=== PATIENT | male | born 1980 | race Caucasian/White ===

== ENCOUNTER 2018-03-30 16:11 | Emergency (ER) | payer OTHER, MEDICAID ==
[2018-03-30 16:25] VITALS: BP 131/82
--- NOTE | 2018-03-30 17:12 | EDPHY ---
H & P Time Seen by Provider: 03/30/18 16:18 HPI/ROS: CHIEF COMPLAINT: Rash HISTORY OF PRESENT ILLNESS: Per caregiver patient with history of rash. She states that it was initially noted 2 months ago and was seen by patient's primary care physician. Rash is described as both itchy and painful. It is diffuse over the upper extremities and back but over the last few days has become much more severe in the lower abdomen and groin area. Patient also recently admitted to [facility] with diagnosis of flu and hypoxia. No report of fever. Per caregiver there has been scabies in the longterm. Contents of 10 point review of systems otherwise negative except for what is mentioned in HPI. General Appearance: Alert, mild distress, developmental delay. Eyes: Pupils equal and round no pallor or injection. ENT, Mouth: Mucous membranes moist. Poor dentition. Respiratory: There are no retractions, lungs are clear to auscultation. Cardiovascular: Regular rate and rhythm. Gastrointestinal: Abdomen is soft and nontender, no masses, bowel sounds normal. Neurological: No focal neurologic deficits, at baseline. Skin: Warm and dry, multiple skin changes including diffuse erythematous small papules in the upper extremities. Low back bilaterally with erythematous area with evidence of scratching. Groin area difficult to exam given patient's developmental delay but there is diffuse erythematous macules and papules with satellite lesions consistent with tinea cruris. No inter digital lesions consistent with scabies. Musculoskeletal: Neck is supple nontender. Extremities are symmetrical, full range of motion, no edema. Psychiatric: Some agitation with exam. Medical/surgical history: Developmental delay, bipolar, OCD. Social history: Lives in longterm. Smoking Status: Never smoked Constitutional: Initial Vital Signs Temperature (C) 36.4 C 03/30/18 16:19 Heart Rate 88 03/30/18 16:19 Respiratory Rate 18 03/30/18 16:19 Blood Pressure 131/82 H 03/30/18 16:19 O2 Sat (%) 95 03/30/18 16:19 O2 Delivery Mode Room Air Allergies/Adverse Reactions: No Known Allergies Allergy (Verified 03/30/18 16:18) Home Medications: Medication Instructions Recorded Divalproex [Depakote 250 MG (RX)] 250 mg 06/26/11 LORazepam [Ativan (*)] 2 06/26/11 QUETIAPINE FUMARATE [Seroquel] 200 mg PO 06/26/11 Desoximetasone 0.25% [Topicort 1 praveen TP BID #1 tube 12/13/12 0.25% Cream (RX)] Hydrocodone/APAP 5325 [[place] 1 tab PO Q4 #10 tab 12/21/13 5/325 (*)] Butenafine HCl [Lotrimin Ultra] 1 praveen TP DAILY 10 Days #1 cream.gm. 03/30/18 Medical Decision Making Differential Diagnosis: Differential diagnosis includes but is not limited to cellulitis, scabies, and tinea cruris, other dermatitis. After evaluation very lower no suspicion for scabies as no evidence of typical lesions and groin rash much more consistent with tinea. Prescription written for Lotrimin cream. Recommended using no other topicals to this area until response noted. Strongly recommended follow- up with primary care physician in approximately 1 week to assess treatment plan. No signs of cellulitis, allergic reaction or other bacterial infection. Stable for discharge. Departure - Departure Disposition: Home, Routine, Self-Care Clinical Impression: Tinea cruris Condition: Good Instructions: Art Itch (ED) Additional Instructions: Try cream as prescribed. If not improving after 5-7 days follow-up with her primary care physician. Referrals: Unknown,Unknown [Primary Care Provider] - As per Instructions Prescriptions: Butenafine HCl [Lotrimin Ultra] 1 praveen TP DAILY 10 Days #1 cream.gm.
== END 2018-03-30 17:12 | disposition home or self-care (01) ==
LOC: CED 16:11
DX: B35.6 Tinea cruris (principal)
CPT/HCPCS: 99283-ER

== ENCOUNTER → 2018-05-13 | Outpatient (CLI) | payer OTHER, MEDICAID | LOC: CIMAGING 08:50 | PROVIDERS: ATTEND Family Medicine | DX: R10.84 Generalized abdominal pain (principal); K82.4 Cholesterolosis of gallbladder; K76.0 Fatty (change of) liver, not elsewhere classified | CPT/HCPCS: 76705-PO ==